=== PATIENT | male | born 1980 | race Caucasian/White ===

== ENCOUNTER 2017-11-29 15:09 | Emergency (ER) | payer SELFPAY ==
[~2017-11-29] VITALS: Ht 182.9 cm; Wt 78.7 kg
[2017-11-29 15:13] VITALS: Ht 182.9 cm; Wt 78.7 kg
[2017-11-29 18:11] VITALS: BP 134/98
== END 2017-11-29 18:11 | disposition home or self-care (01) ==
LOC: ED 15:09
PROC: 0HQGXZZ Repair Left Hand Skin, External Approach (ICD-10-PCS; principal; 2017-11-29)
PROC: 3E02329 Introduction of Other Anti-infective into Muscle, Percutaneous Approach (ICD-10-PCS; 2017-11-29)
PROC: 3E0234Z Introduction of Serum, Toxoid and Vaccine into Muscle, Percutaneous Approach (ICD-10-PCS; 2017-11-29)
DX: S68.125A Partial traumatic metacarpophalangeal amputation of left ring finger, initial encounter (principal); F17.210 Nicotine dependence, cigarettes, uncomplicated; W31.2XXA Contact with powered woodworking and forming machines, initial encounter; Y92.008 Other place in unspecified non-institutional (private) residence as the place of occurrence of the external cause
CPT/HCPCS: 90715; J0690; J2001